=== PATIENT | male | born 1955 | race Caucasian/White ===

== ENCOUNTER → 2021-04-13 11:22 | Outpatient (BNVA) | payer MEDICARE, SELFPAY | PROVIDERS: PCP Family Medicine; Visit Provider Specialist | DX: G20 Parkinson's disease (principal); G56.03 Carpal tunnel syndrome, bilateral upper limbs; G56.23 Lesion of ulnar nerve, bilateral upper limbs | CPT/HCPCS: 95910; 99204; 99205 ==

== ENCOUNTER → 2021-06-08 12:48 | Outpatient (BNVA) | payer MEDICARE, SELFPAY | PROVIDERS: PCP Family Medicine; Visit Provider Specialist | DX: G20 Parkinson's disease (principal); G56.03 Carpal tunnel syndrome, bilateral upper limbs; G56.23 Lesion of ulnar nerve, bilateral upper limbs; G24.8 Other dystonia; S49.92XD Unspecified injury of left shoulder and upper arm, subsequent encounter; W17.89XD Other fall from one level to another, subsequent encounter | CPT/HCPCS: 99214 ==

== ENCOUNTER → 2021-09-07 14:16 | Outpatient (BNVA) | payer MEDICARE, SELFPAY | PROVIDERS: PCP Family Medicine; Visit Provider Specialist | DX: G25.0 Essential tremor (principal); G90.512 Complex regional pain syndrome I of left upper limb; G56.23 Lesion of ulnar nerve, bilateral upper limbs | CPT/HCPCS: 99214 ==

== ENCOUNTER → 2022-06-30 08:26 | Outpatient (BNVA) | payer MEDICARE, SELFPAY | PROVIDERS: PCP Family Medicine; Referring Provider Registered Nurse; Visit Provider Student in an Organized Health Care Education/Training Program | DX: G56.03 Carpal tunnel syndrome, bilateral upper limbs (principal) | CPT/HCPCS: 99204 ==

== ENCOUNTER 2022-07-13 08:26 | Day surgery (SDC) | payer MEDICARE, SELFPAY ==
[2022-07-12 10:52] VITALS: BMI 36.6
[2022-07-13] MEDS: acetaminophen 1,000 MG/100 ML PIGGYBACK 400 MG IV (09:05)
--- NOTE | 2022-07-13 09:05 | ANES.PREANE2 ---
Pre-Anesthetic Assessment Height/Weight: Height 1.78 m Weight 115.666 kg O2 Del Method 07/13/22 08:49 Preop Diagnosis: Right carpal tunnel syndrome Operation Date: 07/13/22 10:15 Proposed Procedures p Right carpal tunnel release:25795 G56.01(Right) - Gucci Reis DO Familial anesthetic complications: None Was Beta Hosea taken within 24 hours: N/A Was Clonidine taken within 24 hours: N/A Last intake: Intake Last Liquid Date 07/12/22 Last Liquid Time 21:00 Last Solid Date 07/12/22 Last Solid Time 21:00 Social No alcohol and No tobacco Exam alert, oriented x 3, clear to auscultation bilaterally and regular rate & rhythm Airway Mallampati: Class III Dentition: full CV/HEM Hypertension GI Gastroesophageal Reflux Disease Metabolic Diabetes Mellitus, Hyperlipidemia and Morbid Obesity Anesthetic Plan ASA status: 3 Anesthesia: MAC Risk of > 500 ml blood loss (7ml/kg in children): No Medications/Allergies Home Medications Medication Instructions Recorded Confirmed Last Taken Type aspirin 81 mg tablet,delayed 81 mg PO DAILY 04/13/21 07/12/22 07/03/22 History release (Adult Low Dose Aspirin) diphenhydramine HCl 25 mg capsule 25 mg PO DAILY PRN Allergy Symptoms 04/13/21 07/12/22 07/11/22 History (Benadryl) glyburide 2.5 mg tablet 2.5 mg PO DAILY 04/13/21 07/12/22 07/12/22 History lisinopril 20 mg tablet 20 mg PO BID 04/13/21 07/12/22 07/12/22 History metformin 1,000 mg tablet 1,000 mg PO BID 04/13/21 07/12/22 07/12/22 History omeprazole 20 mg capsule,delayed 20 mg PO DAILY 04/13/21 07/12/22 07/11/22 History release simvastatin 20 mg tablet 20 mg PO DAILY 04/13/21 07/12/22 07/12/22 History Allergies Allergy/AdvReac Type Severity Reaction Status Date / Time tramadol Allergy Severe made him Verified 07/13/22 08:56 feel crazy [facility] Anesthesia Medical History (Updated 07/04/22 @ 17:59 by Gucci Reis DO) Dupuytren's disease of palm of both hands Social History Smoking and tobacco status: never smoked Alcohol intake: never History of recent travel: No Data Anesthesia Cardiac Studies: No Data to Display
[2022-07-13] MEDS: ketorolac 30 mg/mL INJ IVP (09:07)
[2022-07-13] MEDS: gabapentin 300 mg Capsule PO (09:07)
[2022-07-13 09:10] LABS: Glucose Point of Care 132 mg/dL (70-110)
[2022-07-13] MEDS: sodium chloride 0.9% 1,000 ML 30 ML IV (09:11)
--- NOTE | 2022-07-13 09:25 | W.PM.OPSUD ---
Surgery/Procedure H&P Update DATE OF PROCEDURE: July 13, 2022 DATE H&P PERFORMED: 06/30/22 CHANGES TO PREVIOUS DOCUMENTATION: None PREOP DIAGNOSIS: Right carpal tunnel syndrome PRIMARY INDICATION FOR PROCEDURE: Right carpal tunnel syndrome PLANNED PROCEDURE: Operation Date: 07/13/22 10:15 Proposed Procedures p Right carpal tunnel release:85150 G56.01(Right) - Gucci Reis DO
[2022-07-13] MEDS: ceFAZolin 2,000 MG in sodium chloride 0.9% (plus) 50 ML 100 MG IV (09:37)
--- NOTE | 2022-07-13 10:21 | PM.OP2 ---
Brief Operative Note Date of procedure: 07/13/22 Pre-op diagnosis: Right carpal tunnel syndrome Post-op diagnosis: same Procedure Done: Right carpal tunnel release Surgeon: Gucci Reis Estimated blood loss (mL): 1 Complications: None Post-op Plan: Patient taken to PACU in stable condition dressings on in place clean dry and intact. Patient received appropriate discharge instructions as well as pain medication and antinausea medication postoperatively. Patient may weight-bear as tolerated encourage range of motion to the right hand. We will follow-up with me in the office in 2 weeks. Condition: stable Disposition: same day Coding Level of Care Code Acute Cutter Barrel Drum for Red Correia
--- NOTE | 2022-07-13 10:22 | PM.PACU ---
PACU note Narrative: Patient taken to PACU in stable condition. Dressing on in place clean dry and intact. Fingertips warm well-perfused brisk capillary refill less than 2 seconds. Patient is able to wiggle fingers. Decreased sensation secondary to local anesthesia Exam: awake Disposition: discharged
--- NOTE | 2022-07-13 10:23 | P.OP_ITS ---
Operative Report Date of procedure: July 13, 2022 Pre-op diagnosis: Preop Diagnosis Right carpal tunnel syndrome Post-op diagnosis: Same Procedure done: Right carpal tunnel release Surgeon: Gucci Reis DO Estimated blood loss: 1 cc 15 minutes IV fluids: See anesthesia record Complications: None Findings: See operative report narrative Condition: stable Disposition: same day Brief History: Patient was seen and evaluated in the outpatient setting. Patient had findings consistent with bilateral carpal tunnel syndrome. Right being more symptomatic than his left. We had detailed discussion reviewing his findings as well as reviewed his previous EMG findings. Patient denies any small finger ulnar nerve symptomatology and does not have any ulnar nerve symptoms on examination. Patient's failed conservative treatment and this is causing him significant issues. At this point time through shared decision making he like to get something done taken care of pertaining to this. Feel he does be a great candidate for a carpal tunnel release surgery of starting with his right and then we will proceed with the left once his right side is healed. Patient through shared decision-making agrees to proceed with surgical intervention of right carpal tunnel release which she presents for here today. He understands the risk benefits complication alternatives of surgical nonsurgical treatment options. All questions answered at this time patient elects to proceed with surgical intervention. Consent was obtained in the office. Procedure: Patient seen evaluate in the preoperative holding area. Consent was reviewed with patient. Correct extremity was then marked. Seen evaluate by the anesthesia department once cleared for surgery was taken back to the operative suite. He was transported to the OR table with a armboard to the right upper extremity. He underwent anesthesia per the anesthesia department. Nonsterile tourniquet applied to the right upper extremity. Final timeout performed. Patient received appropriate preoperative antibiotics. Once anesthetized under sterile aseptic technique he underwent a local anesthetic to the right carpal tunnel. He underwent this without any issues. Right upper extremity was then prepped and draped in standard orthopedic fashion. Esmarch tourniquet was used exsanguinate the right upper extremity. Tourniquet was then insufflated to 250 mmHg. A standard open carpal tunnel incision was then made in line with the fourth ray with my most distal extent starting at the Mercado's cardinal line extending proximally but ending just distal to the flexor wrist crease. Sharp scalpel incision was made through skin and subcutaneous tissue. I then placed a self- retaining retractor in and identified the palmar fascia. This was spread through longitudinally. I then identified the palmaris brevis muscle belly. I then used a scalpel to feathered through the palmaris brevis and identified the transverse carpal ligament. I gently feathered from distal to proximal until I entered the carpal tunnel. Once I entered the carpal tunnel I then switched to my Littler dissection scissors. Littler dissection scissors were used to then release the transverse carpal ligament distally into the palmar fat. Once this was done the nerve was appropriately decompressed distally. Next I then turned my attention proximally. I used my dissection scissors to spread on top of the transverse carpal ligament and then had my virtual customer assistant placed a Kasdan retractor proximally so I could directly visualize under loupe magnification the release of the proximal transverse carpal ligament. In standard fashion I subsequently incised the transverse carpal ligament proximally into its entirety as well as appropriately decompressed the median antebrachial fascia around the median nerve. Care was to keep my Littler dissection scissors curved ulnarly away from the palmar cutaneous branch and the recurrent branch was protected throughout this case and not injured. I had direct visualization of the nerve. This nerve was under significant pressure and had noticeable hourglass and protruded once the nerve was decompressed by opening the entirety of the carpal tunnel and through the transverse carpal ligament. There was some significant adhesions around the median nerve at this point time I did have to perform a neurolysis of the median nerve as it coursed through the carpal tunnel to prevent from any further adhesions or areas for entrapment. Once the nerve is appropriately decompressed there is no noticeable masses within the carpal tunnel. The tourniquet was then deflated. Wound was thoroughly irrigated. Hemostasis satisfactory with bipolar electrocautery. Incision was then closed with interrupted nylon mattress stitches. Incision was then covered with Xeroform 4 x 4's Curlex and an Rajesh wrap for a bulky soft dressing. Patient was then awakened from anesthesia and taken to PACU in stable condition. Disposition: Patient taken to PACU in stable condition. Patient recovering well. Will receive appropriate discharge instructions will pain medication postoperatively. We will see him back in the office in 2 weeks. At that point time if he is doing well we will plan to schedule his left carpal tunnel release surgery. Patient understands agrees with current plan. All questions answered.
[2022-07-13 10:28] VITALS: BP 92/68; PULSE 79; RESP 18; TEMP 36.2; O2SAT 94
[2022-07-13 10:33] VITALS: BP 111/64; PULSE 82; RESP 18; O2SAT 95
[2022-07-13 10:36] VITALS: BP 113/63; PULSE 78; RESP 18; O2SAT 96
[2022-07-13 10:49] VITALS: PULSE 76; RESP 16; TEMP 36.2; O2SAT 95
[2022-07-13 11:03] VITALS: BP 118/72; PULSE 78; RESP 16; O2SAT 95
--- NOTE | 2022-07-13 14:59 | ANE.PACU2 ---
Inpatient post-anesthesia follow up: Airway intact: Yes Vital signs: Temperature 97.2 F Pulse Rate 78 Respiratory Rate 16 Blood Pressure 118/72 Pulse Oximetry 95 Oxygen Delivery Me thod Room Air Oxygen Flow Rate Fraction of Inspir ed Oxygen Hydration adequate: Yes Nausea and vomiting: No Pain level: 1 Mental status: Baseline
== END 2022-07-13 11:20 | disposition home or self-care (01) ==
PROVIDERS: PCP Family Medicine; Visit Provider Student in an Organized Health Care Education/Training Program
PROC: (CPT 64721; principal; 2022-07-13 10:05)
DX: G56.01 Carpal tunnel syndrome, right upper limb (principal); I10 Essential (primary) hypertension; K21.9 Gastro-esophageal reflux disease without esophagitis; E11.9 Type 2 diabetes mellitus without complications; E78.5 Hyperlipidemia, unspecified; E66.01 Morbid (severe) obesity due to excess calories; Z68.36 Body mass index [BMI] 36.0-36.9, adult; Z79.82 Long term (current) use of aspirin
CPT/HCPCS: 64721; 36416; 82962; J0131; J0690; J1885; J2704; J2795; J3490; J7030

== ENCOUNTER → 2022-07-28 11:09 | Outpatient (BNVA) | payer MEDICARE, SELFPAY | PROVIDERS: PCP Family Medicine; Visit Provider Student in an Organized Health Care Education/Training Program | DX: G56.03 Carpal tunnel syndrome, bilateral upper limbs (principal) | CPT/HCPCS: 99214 ==

== ENCOUNTER 2022-08-12 09:57 | Day surgery (SDC) | payer MEDICARE, SELFPAY ==
[2022-08-11 09:18] VITALS: BMI 36.6
[2022-08-12] VITALS (9 sets, daily range): BP systolic 144–175; BP diastolic 66–108; PULSE 65–96; RESP 14–18; TEMP 36.3–37.2; O2SAT 94–97
[2022-08-12] MEDS: ketorolac 30 mg/mL INJ IVP (11:11)
[2022-08-12] MEDS: acetaminophen 1,000 MG/100 ML PIGGYBACK 400 MG IV (11:11)
[2022-08-12] MEDS: sodium chloride 0.9% 1,000 ML 30 ML IV (11:13)
[2022-08-12 11:22] LABS: Glucose Point of Care 145 mg/dL (70-110)
--- NOTE | 2022-08-12 11:37 | P.ANESASSM_ITS ---
Pre-Anesthetic Assessment Height/Weight: Height 1.78 m Weight 115.666 kg Temp Pulse Resp BP Pulse Ox O2 Del Method 97.9 F 96 18 160/107 96 08/12/22 10:52 08/12/22 10:52 08/12/22 10:52 08/12/22 10:52 08/12/22 10:52 08/12/22 11:04 Preop Diagnosis: Left carpal tunnel syndrome Operation Date: 08/12/22 12:00 Proposed Procedures p Left hand carpal tunnel release 05486,G56.02(Left) - Gucci [place], Familial anesthetic complications: None Was Beta Hosea taken within 24 hours: N/A Was Clonidine taken within 24 hours: N/A Last intake: Intake Last Liquid Date 08/11/22 Last Liquid Time 21: Last Solid Date 08/11/22 Last Solid Time 21:30 Social No alcohol and No tobacco Exam alert, oriented x 3, clear to auscultation bilaterally and regular rate & rhythm Airway Mallampati: Class III Dentition: partials CV/HEM Hypertension GI Gastroesophageal Reflux Disease Metabolic Diabetes Mellitus and Hyperlipidemia Anesthetic Plan ASA status: 3 Anesthesia: MAC Risk of > 500 ml blood loss (7ml/kg in children): No Medications/Allergies Home Medications Medication Instructions Recorded Confirmed Last Taken Type aspirin 81 mg tablet,delayed 81 mg PO DAILY 04/13/21 08/12/22 08/01/22 History release (Adult Low Dose Aspirin) diphenhydramine HCl 25 mg capsule 25 mg PO DAILY PRN Allergy Symptoms 04/13/21 08/12/22 08/10/22 History (Benadryl) glyburide 2.5 mg tablet 2.5 mg PO DAILY 04/13/21 08/12/22 08/11/22 History lisinopril 20 mg tablet 20 mg PO BID 04/13/21 08/12/22 08/10/22 History metformin 1,000 mg tablet 1,000 mg PO BID 04/13/21 08/12/22 08/11/22 History omeprazole 20 mg capsule,delayed 20 mg PO DAILY 04/13/21 08/12/22 08/10/22 History release simvastatin 20 mg tablet 20 mg PO DAILY 04/13/21 08/12/22 08/10/22 History allopurinol 100 mg tablet 200 mg PO DAILY 12/08/12/22 08/11/22 History Allergies Allergy/AdvReac Type Severity Reaction Status Date / Time tramadol Allergy Severe made him Verified 08/12/22 10:55 feel crazy Current Medications Generic Name Dose Route Start Last Admin Trade Name Olafq PRN Reason Stop Dose Admin Sodium Chloride 1,000 mls @ 30 mls/hr 08/12/22 11:00 08/12/22 11:13 Sodium Chloride 0.9% IV 08/13/22 10:59 30 mls/hr .Q24H EMILIO Administration PFSH Anesthesia Medical History (Updated 08/01/22 @ 22:38 by Gucci Reis DO) Dupuytren's disease of palm of both hands Left carpal tunnel syndrome Right carpal tunnel syndrome Social History Smoking and tobacco status: never smoked Alcohol intake: never History of recent travel: No Data Anesthesia Cardiac Studies: No Data to Display
--- NOTE | 2022-08-12 12:14 | W.PM.OPSUD ---
Surgery/Procedure H&P Update DATE OF PROCEDURE: August 12, 2022 DATE H&P PERFORMED: 07/28/22 CHANGES TO PREVIOUS DOCUMENTATION: none PREOP DIAGNOSIS: Left carpal tunnel syndrome PRIMARY INDICATION FOR PROCEDURE: Left carpal tunnel syndrome PLANNED PROCEDURE: Operation Date: 08/12/22 12:00 Proposed Procedures p Left hand carpal tunnel release 75039,G56.02(Left) - Gucci Reis DO
[2022-08-12] MEDS: ceFAZolin 2,000 MG in sodium chloride 0.9% (plus) 50 ML 100 MG IV (12:23)
[2022-08-12] MEDS: lidocaine 2% INJ 20 mL (12:46)
--- NOTE | 2022-08-12 13:10 | PM.OP2 ---
Brief Operative Note Date of procedure: 08/12/22 Pre-op diagnosis: Left carpal tunnel syndrome Post-op diagnosis: same Procedure Done: Left carpal tunnel release Surgeon: Gucci Reis Estimated blood loss (mL): 2 Complications: None Post-op Plan: Patient taken to PACU in stable condition recovering well dressings on in place. Clean dry and intact. Patient will receive appropriate discharge directions as well as pain medication postoperatively. We will see him in the office in 2 weeks. Condition: stable Disposition: same day Coding Level of Care Code Acute Cotton Weigher for Red Correia
--- NOTE | 2022-08-12 13:11 | PM.PACU ---
PACU note Narrative: Patient taken to PACU in stable condition recovering well. Fingertips warm well-perfused dressing on in place clean dry and intact. Decreased sensation secondary to local block. Patient is able to wiggle fingers. Exam: awake Disposition: discharged
--- NOTE | 2022-08-12 13:12 | P.OP_ITS ---
Operative Report Date of procedure: August 12, 2022 Pre-op diagnosis: Preop Diagnosis Left carpal tunnel syndrome Post-op diagnosis: Same Procedure done: Left carpal tunnel release Surgeon: Gucci Reis DO Estimated blood loss: 2 14 minutes IV fluids: See anesthesia record Complications: None Findings: See operative report narrative Condition: stable Disposition: same day Brief History: Patient been seen evaluate in the outpatient setting and findings of bilateral carpal tunnel syndrome. Patient recently had a right carpal tunnel release surgery which is went on to have significant relief of his symptoms and incisions been well-healed. Patient continues to have persistent left carpal tunnel syndrome and failed nonoperative treatment with bracing. Through shared decision making understanding his risks he would like to proceed with surgical intervention of left carpal tunnel release surgery which has been seen and worked up in the outpatient setting and failed conservative treatment. Detail out the risk benefits complication alternatives to surgical treatment options and understand his risks he agrees to proceed with surgery. All questions answered at this time. Consent obtained in the office. Procedure: Patient seen evaluated in the preoperative holding area. Consent reviewed and signed with patient. Correct extremity was then marked. Patient was seen by my anesthesia department once cleared for surgery was taken back to the operative suite. He was transported onto the OR table. All bony prominences well-padded patient was appropriate secured to the bed. An armboard was placed to the left upper extremity. Nonsterile tourniquet applied to the left arm. Patient underwent anesthesia per the anesthesia department. Final timeout performed. Patient received appropriate preoperative antibiotics. Left upper extremity was then prepped and draped in standard orthopedic fashion. Local anesthesia was used and placed over the planned incision site and carpal tunnel. Once appropriately anesthetized the left upper extremity was then exsanguinated with Esmarch tourniquet and tourniquet inflated to 250 mmHg. I then made a skin incision in line with the fourth ray starting distally at Mercado's cardinal line extending proximally just distal to the wrist crease. Sharp scalpel incision was made through skin and subcutaneous tissue I then placed my self-retaining retractor and then my respiratory care assistant placed a Kasdan r etractors both proximally and distally switched to Littler dissection scissors and spread longitudinally through palmar fascia deep retraction was then placed and identified the transverse carpal ligament and palmaris brevis. I then utilizing scalpel with my deep knife feathered through the transverse carpal ligament until I encountered the floor of the ligament and entered into the carpal tunnel. Identified the contents the carpal tunnel switched to dissection scissors and with protection utilizing Kasdan retractors completed my release of the transverse carpal ligament distally until I encountered palmar fat and there was no entrapment of the median nerve. Next I then spread on top of the transverse carpal ligament and placed retraction above the transverse carpal ligament and utilizing my Littler dissection scissors and under loupe magnification incised the proximal portion of the transverse carpal ligament under direct visualization with care to not injure the palmar cutaneous branch keeping my Littler dissection Severs curved ulnarly. I completed the release of the carpal tunnel as well as into the median antebrachial fascia. I then placed a [place] both proximally and distally and no areas of entrapment of the carpal tunnel and median nerve was noted both proximally and distally. Of note the median nerve had an hourglass shape showing ongoing signs of compression. Er ythema was noted around the nerve showing its irritation however no masses or injuries to the median nerve was appreciated. The palmar cutaneous branch of motor recurrent branch were protected throughout the case as well as the superficial palmar arch. This completed carpal tunnel release. Tourniquet was deflated hemostasis satisfactory. Wound bed was thoroughly irrigated. I then closed the incision with interrupted nylon suture. Xeroform and bulky soft dressing applied. Patient was then awakened from anesthesia and taken to PACU in stable condition. Disposition: Patient taken to PACU in stable condition recovering well. Patient will receive appropriate pain medication and discharge instructions postoperatively. We will have patient follow-up with us in 2 weeks. Patient understands and agrees with current plan. All questions answered.
[2022-08-12] MEDS: HYDROcodone-acetaminophen 5-325 mg Tablet 1 TAB PO (13:47)
--- NOTE | 2022-08-12 14:08 | ANE.PACU2 ---
Inpatient post-anesthesia follow up: Airway intact: Yes Vital signs: Temperature 97.4 F Pulse Rate 65 Respiratory Rate 18 Blood Pressure 175/91 Pulse Oximetry 95 Oxygen Delivery Me thod Room Air Oxygen Flow Rate Fraction of Inspir ed Oxygen Hydration adequate: Yes Nausea and vomiting: No Pain level: 1 Mental status: Baseline
== END 2022-08-12 14:20 | disposition home or self-care (01) ==
PROVIDERS: PCP Family Medicine; Visit Provider Student in an Organized Health Care Education/Training Program
PROC: (CPT 64721; principal; 2022-08-12 12:00)
DX: G56.02 Carpal tunnel syndrome, left upper limb (principal); I10 Essential (primary) hypertension; K21.9 Gastro-esophageal reflux disease without esophagitis; E11.9 Type 2 diabetes mellitus without complications; E78.5 Hyperlipidemia, unspecified; Z79.82 Long term (current) use of aspirin; Z79.84 Long term (current) use of oral hypoglycemic drugs
CPT/HCPCS: 64721; 36416; 82962; J0131; J0690; J1885; J2704; J2795; J3010; J7030

== ENCOUNTER → 2022-08-25 13:29 | Outpatient (BNVA) | payer MEDICARE, SELFPAY | PROVIDERS: PCP Family Medicine; Visit Provider Student in an Organized Health Care Education/Training Program | DX: G56.03 Carpal tunnel syndrome, bilateral upper limbs (principal) | CPT/HCPCS: 99024 ==

== ENCOUNTER → 2022-09-20 09:46 | Outpatient (BNVA) | payer MEDICARE, SELFPAY | PROVIDERS: PCP Family Medicine; Visit Provider Podiatrist Foot & Ankle Surgery | DX: E11.42 Type 2 diabetes mellitus with diabetic polyneuropathy (principal); M21.621 Bunionette of right foot; M21.622 Bunionette of left foot; L84 Corns and callosities; M20.42 Other hammer toe(s) (acquired), left foot; M20.41 Other hammer toe(s) (acquired), right foot; Z79.84 Long term (current) use of oral hypoglycemic drugs; I73.89 Other specified peripheral vascular diseases | CPT/HCPCS: 11056; 93923; 99204 ==

== ENCOUNTER → 2023-01-31 10:14 | Outpatient (BNVA) | payer MEDICARE, SELFPAY | PROVIDERS: PCP Family Medicine; Visit Provider Podiatrist Foot & Ankle Surgery | DX: E11.42 Type 2 diabetes mellitus with diabetic polyneuropathy (principal); L84 Corns and callosities; M21.621 Bunionette of right foot; M21.622 Bunionette of left foot; M20.41 Other hammer toe(s) (acquired), right foot; M20.42 Other hammer toe(s) (acquired), left foot; Z79.84 Long term (current) use of oral hypoglycemic drugs | CPT/HCPCS: 99213 ==

== ENCOUNTER → 2023-04-04 08:22 | Outpatient (BNVA) | payer MEDICARE, SELFPAY | PROVIDERS: PCP Family Medicine; Visit Provider Student in an Organized Health Care Education/Training Program | DX: G56.02 Carpal tunnel syndrome, left upper limb (principal); M65.332 Trigger finger, left middle finger; E11.42 Type 2 diabetes mellitus with diabetic polyneuropathy; L84 Corns and callosities; L60.3 Nail dystrophy; M21.621 Bunionette of right foot; M21.622 Bunionette of left foot; M20.41 Other hammer toe(s) (acquired), right foot; M20.42 Other hammer toe(s) (acquired), left foot | CPT/HCPCS: 11721; 20550; 73130; 99213; J3301; J3490 ==

== ENCOUNTER → 2023-06-13 07:46 | Outpatient (BNVA) | payer MEDICARE, SELFPAY | PROVIDERS: PCP Family Medicine; Visit Provider Podiatrist Foot & Ankle Surgery | DX: L60.3 Nail dystrophy (principal); E11.42 Type 2 diabetes mellitus with diabetic polyneuropathy; L84 Corns and callosities; M20.41 Other hammer toe(s) (acquired), right foot; M20.42 Other hammer toe(s) (acquired), left foot; Z79.84 Long term (current) use of oral hypoglycemic drugs | CPT/HCPCS: 11721 ==

== ENCOUNTER → 2023-09-26 07:58 | Outpatient (BNVA) | payer MEDICARE, SELFPAY | PROVIDERS: PCP Family Medicine; Visit Provider Podiatrist Foot & Ankle Surgery | DX: L60.3 Nail dystrophy (principal); E11.42 Type 2 diabetes mellitus with diabetic polyneuropathy; L84 Corns and callosities; M20.41 Other hammer toe(s) (acquired), right foot; M20.42 Other hammer toe(s) (acquired), left foot; Z79.84 Long term (current) use of oral hypoglycemic drugs | CPT/HCPCS: 11721 ==

== ENCOUNTER → 2023-10-14 12:21 | Outpatient (BNVA) | payer MEDICARE, SELFPAY | PROVIDERS: PCP Family Medicine; Visit Provider Emergency Medicine | DX: R09.81 Nasal congestion (principal) | CPT/HCPCS: 87400 ==

== ENCOUNTER → 2023-12-26 08:52 | Outpatient (BNVA) | payer MEDICARE, SELFPAY | PROVIDERS: PCP Family Medicine; Visit Provider Podiatrist Foot & Ankle Surgery | DX: L60.3 Nail dystrophy (principal); E11.42 Type 2 diabetes mellitus with diabetic polyneuropathy; Z79.84 Long term (current) use of oral hypoglycemic drugs | CPT/HCPCS: 11721 ==

== ENCOUNTER → 2024-03-26 09:01 | Outpatient (BNVA) | payer MEDICARE, SELFPAY | PROVIDERS: PCP Family Medicine; Visit Provider Podiatrist Foot & Ankle Surgery | DX: L60.3 Nail dystrophy (principal); E11.42 Type 2 diabetes mellitus with diabetic polyneuropathy; Z79.84 Long term (current) use of oral hypoglycemic drugs | CPT/HCPCS: 11721 ==

== ENCOUNTER → 2024-04-23 07:21 | Outpatient (BNVA) | payer MEDICARE, SELFPAY | PROVIDERS: PCP Family Medicine; Visit Provider Podiatrist Foot & Ankle Surgery | DX: E11.42 Type 2 diabetes mellitus with diabetic polyneuropathy (principal); L84 Corns and callosities; M20.41 Other hammer toe(s) (acquired), right foot; M20.42 Other hammer toe(s) (acquired), left foot; Z79.84 Long term (current) use of oral hypoglycemic drugs | CPT/HCPCS: 11055; 99213 ==

== ENCOUNTER → 2024-05-16 06:50 | Outpatient (BNVA) | payer MEDICARE, SELFPAY | PROVIDERS: PCP Family Medicine; Visit Provider Podiatrist Foot & Ankle Surgery | DX: M20.41 Other hammer toe(s) (acquired), right foot (principal); M20.42 Other hammer toe(s) (acquired), left foot; E11.42 Type 2 diabetes mellitus with diabetic polyneuropathy; L84 Corns and callosities | CPT/HCPCS: 28010; 28011 ==

== ENCOUNTER → 2024-06-25 08:49 | Outpatient (BNVA) | payer MEDICARE, SELFPAY | PROVIDERS: PCP Family Medicine; Visit Provider Podiatrist Foot & Ankle Surgery | DX: M20.41 Other hammer toe(s) (acquired), right foot (principal); M20.42 Other hammer toe(s) (acquired), left foot; L60.3 Nail dystrophy; E11.42 Type 2 diabetes mellitus with diabetic polyneuropathy; L97.511 Non-pressure chronic ulcer of other part of right foot limited to breakdown of skin; Z79.84 Long term (current) use of oral hypoglycemic drugs | CPT/HCPCS: 11721; 99213 ==

== ENCOUNTER → 2024-09-24 10:21 | Outpatient (BNVA) | payer MEDICARE, SELFPAY | PROVIDERS: PCP Family Medicine; Visit Provider Podiatrist Foot & Ankle Surgery | DX: E11.42 Type 2 diabetes mellitus with diabetic polyneuropathy (principal); L60.3 Nail dystrophy; M20.41 Other hammer toe(s) (acquired), right foot; M20.42 Other hammer toe(s) (acquired), left foot; Z79.84 Long term (current) use of oral hypoglycemic drugs | CPT/HCPCS: 11721 ==

== ENCOUNTER → 2024-12-23 07:42 | Outpatient (BNVA) | payer MEDICARE, SELFPAY | PROVIDERS: PCP Family Medicine; Visit Provider Podiatrist Foot & Ankle Surgery | DX: E11.42 Type 2 diabetes mellitus with diabetic polyneuropathy (principal); L60.3 Nail dystrophy; E11.8 Type 2 diabetes mellitus with unspecified complications; M20.41 Other hammer toe(s) (acquired), right foot; M20.42 Other hammer toe(s) (acquired), left foot; L84 Corns and callosities; Z79.84 Long term (current) use of oral hypoglycemic drugs | CPT/HCPCS: 11056; 11721 ==

== ENCOUNTER → 2025-01-08 14:11 | Outpatient (BNVA) | payer MEDICARE, SELFPAY | PROVIDERS: PCP Family Medicine; Visit Provider Podiatrist Foot & Ankle Surgery | DX: E11.42 Type 2 diabetes mellitus with diabetic polyneuropathy (principal); L84 Corns and callosities; Q66.71 Congenital pes cavus, right foot; Q66.72 Congenital pes cavus, left foot; Z79.84 Long term (current) use of oral hypoglycemic drugs | CPT/HCPCS: 99213 ==

== ENCOUNTER → 2025-03-24 07:52 | Outpatient (BNVA) | payer MEDICARE, SELFPAY | PROVIDERS: PCP Family Medicine; Visit Provider Podiatrist Foot & Ankle Surgery | DX: E11.42 Type 2 diabetes mellitus with diabetic polyneuropathy (principal); L60.3 Nail dystrophy; L84 Corns and callosities; E11.8 Type 2 diabetes mellitus with unspecified complications; Q66.71 Congenital pes cavus, right foot; Q66.72 Congenital pes cavus, left foot; Z79.84 Long term (current) use of oral hypoglycemic drugs | CPT/HCPCS: 11055; 11721 ==

== ENCOUNTER → 2025-06-24 09:31 | Outpatient (BNVA) | payer MEDICARE, SELFPAY | PROVIDERS: PCP Family Medicine; Visit Provider Podiatrist Foot & Ankle Surgery | DX: E11.42 Type 2 diabetes mellitus with diabetic polyneuropathy (principal); L60.3 Nail dystrophy; L84 Corns and callosities; E11.8 Type 2 diabetes mellitus with unspecified complications; Q66.71 Congenital pes cavus, right foot; Q66.72 Congenital pes cavus, left foot; Z79.84 Long term (current) use of oral hypoglycemic drugs | CPT/HCPCS: 11056; 11721 ==